=== PATIENT | female | born 1945 | race Caucasian/White ===

== ENCOUNTER 2020-06-19 11:42 | Inpatient (IN) | payer MEDICARE, MEDICAID ==
[~2020-06-19] VITALS: Ht 165.1 cm; Wt 73.5 kg
[2020-06-19 12:38] LABS: Basophils # (auto) 0 10 ^3/uL (0-0.2); Basophils % (auto) 0.3 % (0.0-2.0); Eosinophils # (auto) 0 10 ^3/uL (0-0.8); Eosinophils % (auto) 0.1 % (0.0-7.0); Hematocrit 47.3 % (36.0-46.0); Lymphocytes # (auto) 1.8 10 ^3/uL (0.4-5.4); Lymphocytes % (auto) 15.1 % (10.0-50.0); Mean Corpuscular Hemoglobin 29.9 pg (28.0-32.0); Mean Corpuscular Hgb Conc. 31.8 g/dL (32.0-36.0); Mean Corpuscular Volume 93.9 fL (80.0-100.0); Monocytes # (auto) 1.4 10 ^3/uL (0-1.3); Monocytes % (auto) 12.1 % (0.0-12.0); Neutrophils # (auto) 8.6 10 ^3/uL (1.6-8.6); Neutrophils % (auto) 72.4 % (37.0-80.0); Nucleated Red Blood Cells % 0.2 %; Red Blood Cells 5.03 10^6/uL (4.0-5.20); Red Cell Distribution Width 13.2 % (11.8-14.3); White Blood Cell 11.9 10^3/uL (4.4-10.8)
[2020-06-19 13:10] LABS: Albumin 3.1 g/dL (3.4-5.0); Calcium 8.4 mg/dL (8.5-10.1); Magnesium 2.2 mg/dL (1.6-2.6); Potassium 4.3 mmol/L (3.5-5.1)
[2020-06-19 13:18] LABS: BUN/Creatinine Ratio 26.8; Bilirubin, Total 0.4 mg/dL (0.2-1.0); Total Protein 7.2 g/dL (6.4-8.2)
[2020-06-19] MEDS ORDERED: SODIUM CHLORIDE 0.9% 1,000 ML IV ONE ×2 (13:30→14:45)
[2020-06-19 13:32] LABS: Urine Bacteria NONE SEEN /hpf (None Seen); Urine Blood Negative /uL (Negative); Urine Hyaline Cast FEW /lpf (0 - 2); Urine Mucus FEW (None Seen); Urine Specific Gravity 1.017 (1.001-1.035); Urine WBC 11 /hpf (0 - 5)
[2020-06-19 14:15] LABS: INR 1.04 (0.9-1.15); Partial Thromboplastin Time 24.9 sec (23.0-31.2)
[2020-06-19] MEDS ORDERED: ASPirin 81 mg TAB PO ONE (17:00)
[2020-06-19] MEDS ORDERED: LORazepam 2MG/ML-1ML VIAL IV ONE (17:00)
[2020-06-19] MEDS ORDERED: DEXTROSE (50%) 50ML SYRG IV PRN ×2 (19:15→20:00)
[2020-06-19] MEDS ORDERED: NITROGLYCERIN 0.4 MG SL TAB SL PRN (19:15)
[2020-06-19] MEDS ORDERED: ACETAMINOPHEN 500 MG TAB PO PRN (19:15)
[2020-06-19] MEDS ORDERED: ALBUTEROL SULF 2.5 MG/0.5ML(0.5%) NEB SOLN NEB PRN (19:15)
[2020-06-19] MEDS ORDERED: ONDANSETRON HCL 4 MG/2 ML VIAL IV PRN (19:15)
[2020-06-19] MEDS ORDERED: HYDROcodone-ACET 5/325MG TAB PO PRN (19:15)
[2020-06-19] MEDS ORDERED: MORPHINE SULFATE INJECTION 2 MG/ML SYRG IV PRN ×2 (19:15)
[2020-06-19 19:58] LABS: Amphetamine Screen, Urine NEGATIVE (NEGATIVE); Barbiturate Scree,Urine NEGATIVE (NEGATIVE); Benzodiazephine Screen, Urine NEGATIVE (NEGATIVE); Cannabinoid Screen, Urine NEGATIVE (NEGATIVE); Cocaine Screen, Urine NEGATIVE (NEGATIVE); Opiate Scree,Urine NEGATIVE (NEGATIVE); Phencyclidine Screen, Urine NEGATIVE (NEGATIVE)
[2020-06-19] MEDS ORDERED: IPRATROPIUM BROM 0.5 MG/2.5ML INH SOL NEB PRN (20:15)
[2020-06-19] MEDS ORDERED: ACCU-CHEK COMFORT CURVE STRIP VI SCH (22:00)
[2020-06-19] MEDS ORDERED: InsuLIN REG 1unit/0.01ml Soln (100units/ml) SC SCH (22:00)
[2020-06-19] MEDS: ACCU-CHEK COMFORT CURVE STRIP VI SCH (22:16)
[2020-06-19] MEDS: METOPROLOL TARTRATE 25 MG TAB PO SCH (22:46)
[2020-06-19] MEDS: DOCUSATE SOD 100 MG CAP PO SCH (22:46)
[2020-06-19] MEDS: ATORVASTATIN 20 MG TAB PO SCH (22:46)
[2020-06-19] MEDS: InsuLIN REG 1unit/0.01ml Soln (100units/ml) SC SCH (22:47)
[2020-06-20] MEDS: IPRATROPIUM BROM 0.5 MG/2.5ML INH SOL NEB SCH ×4 (00:52→18:00)
[2020-06-20] MEDS: LORazepam 2MG/ML-1ML VIAL IV PRN ×3 (02:37→22:15)
[2020-06-20] MEDS: ACCU-CHEK COMFORT CURVE STRIP VI SCH ×4 (06:40→22:01)
[2020-06-20] MEDS: InsuLIN REG 1unit/0.01ml Soln (100units/ml) SC SCH ×4 (06:47→22:02)
[2020-06-20 07:22] LABS: Basophils # (auto) 0.1 10 ^3/uL (0-0.2); Basophils % (auto) 0.7 % (0.0-2.0); Eosinophils # (auto) 0.1 10 ^3/uL (0-0.8); Eosinophils % (auto) 1.6 % (0.0-7.0); Hematocrit 44.1 % (36.0-46.0); Hemoglobin 14.3 g/dL (12.2-16.2); Lymphocytes # (auto) 1.8 10 ^3/uL (0.4-5.4); Mean Corpuscular Hemoglobin 30.6 pg (28.0-32.0); Mean Corpuscular Hgb Conc. 32.5 g/dL (32.0-36.0); Mean Corpuscular Volume 94.1 fL (80.0-100.0); Monocytes # (auto) 0.7 10 ^3/uL (0-1.3); Monocytes % (auto) 10.2 % (0.0-12.0); Neutrophils # (auto) 4.2 10 ^3/uL (1.6-8.6); Neutrophils % (auto) 61.5 % (37.0-80.0); Nucleated Red Blood Cells % 0.1 %; Red Blood Cells 4.69 10^6/uL (4.0-5.20); Red Cell Distribution Width 13.5 % (11.8-14.3); White Blood Cell 6.8 10^3/uL (4.4-10.8)
[2020-06-20 07:31] LABS: Calcium 7.9 mg/dL (8.5-10.1)
[2020-06-20 07:35] LABS: BUN/Creatinine Ratio 23.1
[2020-06-20 07:38] LABS: INR 1.01 (0.9-1.15); Partial Thromboplastin Time 25.1 sec (23.0-31.2)
[2020-06-20] MEDS: ASPirin-EC 81 mg tab PO SCH (09:04)
[2020-06-20] MEDS: DOCUSATE SOD 100 MG CAP PO SCH ×2 (09:04→22:15)
[2020-06-20] MEDS: FAMOTIDINE 20 MG TAB PO SCH (09:05)
[2020-06-20] MEDS: LISINOPRIL 10 MG TAB PO SCH (09:05)
[2020-06-20] MEDS: METOPROLOL TARTRATE 25 MG TAB PO SCH ×2 (09:05→22:00)
[2020-06-20] MEDS ORDERED: cefTRIAXone 1GM/50ML D5W 50 ML IV ONE (12:15)
[2020-06-20] MEDS ORDERED: NITROGLYCERIN 0.4 MG SL TAB SL PRN (14:45)
[2020-06-20] MEDS: ALBUTEROL SULF 2.5 MG/0.5ML(0.5%) NEB SOLN NEB PRN (19:34)
[2020-06-20] MEDS: ATORVASTATIN 20 MG TAB PO SCH (22:15)
[2020-06-20 23:30] VITALS: BP 95/59
[2020-06-20 23:50] VITALS: BP 95/59
[2020-06-21 04:38] VITALS: BP 90/60
[2020-06-21 05:00] VITALS: BP 90/60
[2020-06-21] MEDS: ACCU-CHEK COMFORT CURVE STRIP VI SCH ×4 (06:16→22:17)
[2020-06-21] MEDS: InsuLIN REG 1unit/0.01ml Soln (100units/ml) SC SCH ×5 (06:18→22:19)
[2020-06-21] MEDS: cefTRIAXone 1GM/50ML D5W 50 ML IV SCH (09:00)
[2020-06-21] MEDS: DOCUSATE SOD 100 MG CAP PO SCH ×2 (09:53→22:20)
[2020-06-21] MEDS: FAMOTIDINE 20 MG TAB PO SCH (09:53)
[2020-06-21] MEDS: METOPROLOL TARTRATE 25 MG TAB PO SCH ×2 (09:53→22:16)
[2020-06-21] MEDS: ASPirin-EC 81 mg tab PO SCH (09:53)
[2020-06-21] MEDS: LISINOPRIL 10 MG TAB PO SCH (09:53)
[2020-06-21] MEDS: IPRATROPIUM BROM 0.5 MG/2.5ML INH SOL NEB SCH ×4 (12:00→20:05)
[2020-06-21 16:00] VITALS: BP 113/66
[2020-06-21] MEDS: ATORVASTATIN 20 MG TAB PO SCH (22:14)
[2020-06-21] MEDS: hydrALAZINE HCL 20 MG/ML VL IV PRN (22:18)
[2020-06-21] MEDS: LORazepam 2MG/ML-1ML VIAL IV PRN (22:50)
[2020-06-22] MEDS: InsuLIN REG 1unit/0.01ml Soln (100units/ml) SC SCH ×4 (05:51→22:15)
[2020-06-22] MEDS: ACCU-CHEK COMFORT CURVE STRIP VI SCH ×4 (05:53→22:05)
[2020-06-22] MEDS: IPRATROPIUM BROM 0.5 MG/2.5ML INH SOL NEB SCH ×4 (06:00→18:00)
[2020-06-22] MEDS: cefTRIAXone 1GM/50ML D5W 50 ML IV SCH (09:00)
[2020-06-22] MEDS: DOCUSATE SOD 100 MG CAP PO SCH ×2 (10:08→22:04)
[2020-06-22] MEDS: FAMOTIDINE 20 MG TAB PO SCH (10:08)
[2020-06-22] MEDS: METOPROLOL TARTRATE 25 MG TAB PO SCH ×2 (10:08→11:08)
[2020-06-22] MEDS: ASPirin-EC 81 mg tab PO SCH (10:08)
[2020-06-22] MEDS: LISINOPRIL 10 MG TAB PO SCH (10:09)
[2020-06-22] MEDS: ALBUTEROL SULF 2.5 MG/0.5ML(0.5%) NEB SOLN NEB PRN ×2 (11:15→11:39)
[2020-06-22] MEDS: hydrALAZINE HCL 20 MG/ML VL IV PRN (17:20)
[2020-06-22 20:00] VITALS: BP 139/52
[2020-06-22 21:49] VITALS: BP 139/52
[2020-06-22] MEDS: ATORVASTATIN 20 MG TAB PO SCH (22:04)
[2020-06-23] MEDS ORDERED: METOPROLOL TARTRATE 25 MG TAB PO ONE (01:30)
[2020-06-23 04:44] VITALS: BP 95/64
[2020-06-23] MEDS: ACCU-CHEK COMFORT CURVE STRIP VI SCH ×4 (06:09→21:59)
[2020-06-23] MEDS: InsuLIN REG 1unit/0.01ml Soln (100units/ml) SC SCH ×4 (06:13→21:59)
[2020-06-23 08:00] VITALS: BP 110/60
[2020-06-23] MEDS: IPRATROPIUM BROM 0.5 MG/2.5ML INH SOL NEB SCH ×4 (08:39→18:00)
[2020-06-23] MEDS: ALBUTEROL SULF 2.5 MG/0.5ML(0.5%) NEB SOLN NEB PRN (08:39)
[2020-06-23] MEDS: ASPirin-EC 81 mg tab PO SCH (10:11)
[2020-06-23] MEDS: DOCUSATE SOD 100 MG CAP PO SCH ×2 (10:11→22:00)
[2020-06-23] MEDS: cefTRIAXone 1GM/50ML D5W 50 ML IV SCH (10:11)
[2020-06-23] MEDS: FAMOTIDINE 20 MG TAB PO SCH (10:11)
[2020-06-23] MEDS: METOPROLOL TARTRATE 25 MG TAB PO SCH ×2 (10:12→22:01)
[2020-06-23] MEDS: LISINOPRIL 10 MG TAB PO SCH (10:12)
[2020-06-23 16:00] VITALS: BP 102/68
[2020-06-23 20:00] VITALS: BP 132/66
[2020-06-23] MEDS: ATORVASTATIN 20 MG TAB PO SCH (22:00)
[2020-06-24] MEDS: IPRATROPIUM BROM 0.5 MG/2.5ML INH SOL NEB SCH ×4 (06:00→18:00)
[2020-06-24] MEDS: ACCU-CHEK COMFORT CURVE STRIP VI SCH ×3 (06:16→17:34)
[2020-06-24] MEDS: InsuLIN REG 1unit/0.01ml Soln (100units/ml) SC SCH ×3 (06:20→17:42)
[2020-06-24 08:00] VITALS: BP 96/49
[2020-06-24 08:15] VITALS: BP 141/70
[2020-06-24] MEDS: cefTRIAXone 1GM/50ML D5W 50 ML IV SCH (09:33)
[2020-06-24] MEDS: DOCUSATE SOD 100 MG CAP PO SCH (09:33)
[2020-06-24] MEDS: ASPirin-EC 81 mg tab PO SCH (09:33)
[2020-06-24] MEDS: FAMOTIDINE 20 MG TAB PO SCH (09:36)
[2020-06-24 12:45] VITALS: BP 94/67
[2020-06-24 12:50] VITALS: BP 163/84
[2020-06-24] MEDS: LISINOPRIL 10 MG TAB PO SCH (13:00)
[2020-06-24] MEDS: METOPROLOL TARTRATE 25 MG TAB PO SCH (13:00)
[2020-06-24] MEDS: LORazepam 2MG/ML-1ML VIAL IV PRN (15:37)
[2020-06-24 16:00] VITALS: BP_SYST 102; BP_SYST 155; BP_DIAS 64; BP_DIAS 76
[2020-06-24 19:15] VITALS: BP 104/68
== END 2020-06-24 19:43 | DRG 280 ==
LOC: ER 11:42 → EDBD 11:42 → TELE 11:43 → TELE-CENTR 06-20 23:28 → TELE-EAST 06-22 17:42
PROVIDERS: ADMIT Nurse Practitioner Acute Care; ATTEND Family Medicine
DX: R55 Syncope and collapse (principal); I21.A1 Myocardial infarction type 2; G93.41 Metabolic encephalopathy; N17.9 Acute kidney failure, unspecified; S00.03XA Contusion of scalp, initial encounter; I95.9 Hypotension, unspecified; N30.90 Cystitis, unspecified without hematuria; W18.30XA Fall on same level, unspecified, initial encounter; Y92.009 Unspecified place in unspecified non-institutional (private) residence as the place of occurrence of the external cause; E66.9 Obesity, unspecified; E11.40 Type 2 diabetes mellitus with diabetic neuropathy, unspecified; Y93.89 Activity, other specified; Y99.8 Other external cause status; E11.22 Type 2 diabetes mellitus with diabetic chronic kidney disease; Z20.822 Contact with and (suspected) exposure to COVID-19; Z99.81 Dependence on supplemental oxygen; K21.9 Gastro-esophageal reflux disease without esophagitis; F41.9 Anxiety disorder, unspecified; Z68.27 Body mass index [BMI] 27.0-27.9, adult; J44.9 Chronic obstructive pulmonary disease, unspecified; I10 Essential (primary) hypertension; N18.32 Chronic kidney disease, stage 3b
CPT/HCPCS: 36415; 70450; 71045; 72125; 73080; 80048; 80053; 80307; 81001; 82962; 83735; 83880; 84484; 85025; 85610; 85730; 86141; 87086; 87088; 87426; 93005; 93306; 94640; 97110; 97116; 97530; G0378; J0696; J1815